=== PATIENT | female | born 1965 | race Caucasian/White ===

== ENCOUNTER → 2019-04-09 | Outpatient (CLI) | payer BC, OTHER ==
[~2019-04-09] MED LIST: IMODIUM ADVANC1 EAC1 PO; OMEPRAZOLE; PROAIR HFA8.5 GM IH
== END ==
LOC: RAD 11:41
DX: J45.40 Moderate persistent asthma, uncomplicated (principal); M43.8X4 Other specified deforming dorsopathies, thoracic region